=== PATIENT | female | born 1940 | race Caucasian/White ===

== ENCOUNTER 2021-02-23 08:51 | Outpatient (CLI) | payer MEDICARE, BC ==
[2021-02-23 11:14] LABS: Hemoglobin 14.8 g/dL (12.0-15.5); Mean Corpuscular HGB CONC 32.4 g/dL (32.0-36.0); Mean Corpuscular Hemoglobin 31.8 pg (27.0-33.0); Mean Corpuscular Volume 98.3 fl (81.6-98.3); Mean Platelet Volume 11.4 fl (7.4-10.4); Platelet Count 287 10x3/uL (150-450); Red Blood Cell (RBC) Count 4.65 10x6/uL (3.90-5.03); White Blood Cell (WBC) Count 7.4 10x3/uL (3.5-10.5)
[2021-02-23 11:15] LABS: Anion Gap 15 mmol/L (10-20); BUN (Urea Nitrogen) 15 mg/dL (9.8-20.1); Calc. Creatinine Clearance 0 mL/min (70-130); Calcium 9.4 mg/dL (7.8-10.44); Carbon Dioxide 24 mmol/L (23-31); Chloride 106 mmol/L (98-107); Glucose 94 mg/dL (83-110); Potassium 4.2 mmol/L (3.5-5.1); Sodium 141 mmol/L (136-145)
[2021-02-23 11:43] LABS: Bilirubin Neg (Negative); Blood, Urine 50 (Negative); Glucose, Urine (Dipstick) Normal (Negative); Ketone, Urine 5 mg/dL (Negative); Leukocyte 500 (Negative); Nitrite Negative (Negative); Protein, Urine (Dipstick) 30 mg/dl (Neg-Trace); Urobilinogen Normal mg/dL (Less than 2); pH, Urine 6.5 (5.0-9.0)
[2021-02-23 12:14] LABS: Clarity Slightly Cloudy (Clear)
[2021-02-23 12:20] LABS: RBC/HPF 0-3 HPF (0-3)
[2021-02-23 12:21] LABS: Bacteria/HPF 1+ HPF (None Seen); Squamous Epithelial 0-3 HPF (0-3)
== END 2021-02-23 08:52 | disposition home or self-care (01) ==
LOC: LABBT 08:51
PROVIDERS: ATTEND Urology
DX: Z01.818 Encounter for other preprocedural examination (principal); N32.81 Overactive bladder
CPT/HCPCS: 80048; 81001; 85027; 87086; 93005; 93010

== ENCOUNTER 2021-02-26 05:50 | Day surgery (SDC) | payer MEDICARE, BC ==
[2021-02-25 09:52] VITALS: BMI 25.7
[2021-02-26] MEDS ORDERED: Levofloxacin 500 mg/D5W 100 ml Premix Bag ONE (06:03)
[2021-02-26] MEDS ORDERED: Fentanyl 100 MCG/2 ML VIAL ONE (06:48)
[2021-02-26] MEDS ORDERED: Ondansetron PF 4 MG/2 ML Vial ONE ×2 (06:48→07:03)
[2021-02-26] MEDS ORDERED: PROPOFOL 20 ML ONE (06:48)
[2021-02-26] MEDS ORDERED: Sodium Chloride 0.9% 10 ML ONE (07:03)
[2021-02-26] MEDS ORDERED: Lidocaine 1% PF 5 ML VIAL ONE (07:03)
[2021-02-26] MEDS ORDERED: Phenazopyridine HCl 100 MG TAB ONE (08:06)
[2021-02-26] MEDS ORDERED: Oxybutynin 5 MG TAB ONE (08:06)
== END 2021-02-26 08:25 | disposition home or self-care (01) ==
LOC: SDC 05:50
PROVIDERS: ATTEND Urology
PROC: 3E0K8GC Introduction of Other Therapeutic Substance into Genitourinary Tract, Via Natural or Artificial Opening Endoscopic (ICD-10-PCS; principal; 2021-02-26)
DX: N32.81 Overactive bladder (principal)
CPT/HCPCS: 52287; J0585; J1956; J2405; J2704; J3010

== ENCOUNTER 2021-06-22 18:13 | Emergency (ER) | payer MEDICARE, BC ==
[2021-06-22] MEDS ORDERED: Acetaminophen 500 MG TAB ONE (19:09)
[2021-06-22] MEDS ORDERED: Albuterol Sulfate 1.25 MG/3 ML NEB ONE (19:50)
[2021-06-22] MEDS ORDERED: Albuterol 200 PUFF (6.7GM INHALER) ONE (19:51)
[2021-06-22 19:52] LABS: #Eosinphils 0.5 thou/uL (0.0-0.7); #Lymphocytes 0.6 thou/uL (1.20-3.40); #Monocytes 0.8 thou/uL (0.11-0.59); %Eosinophils 4.3 % (0.0-10.0); %Lymphocytes 5.4 % (21.0-51.0); %Neutrophils 83.4 % (42.0-75.0); Mean Corpuscular HGB CONC 34.1 g/dL (32.0-36.0); Mean Corpuscular Hemoglobin 33.5 pg (27.0-31.0); Mean Corpuscular Volume 98.2 fL (78.0-98.0); Mean Platelet Volume 9.2 fL (7.4-10.4); Platelet Count 230 thou/uL (130-400); RBC Distribution Width 11.7 % (11.5-14.5); Red Blood Cell (RBC) Count 3.89 mill/uL (4.20-5.40); White Blood Cell (WBC) Count 10.7 thou/uL (4.8-10.8)
[2021-06-22 20:07] LABS: ALT (SGPT) 135 U/L (8-55); AST (SGOT) 79 U/L (5-34); Albumin 3.5 g/dL (3.4-4.8); Alkaline Phosphatase 261 U/L (40-110); Anion Gap 14 mmol/L (10-20); BUN (Urea Nitrogen) 11 mg/dL (9.8-20.1); Bilirubin, Total 0.8 mg/dL (0.2-1.2); Calc. Creatinine Clearance 0 mL/min (70-130); Calcium 8.7 mg/dL (7.8-10.44); Carbon Dioxide 24 mmol/L (23-31); Chloride 103 mmol/L (98-107); Globulin 2.6 g/dL (2.4-3.5); Glucose 109 mg/dL (83-110); Potassium 3.5 mmol/L (3.5-5.1); Protein, Total 6.1 g/dL (5.8-8.1); Sodium 137 mmol/L (136-145)
[2021-06-22 20:09] LABS: SARS-CoV-2 NAA Rapid Test Not Detected (NotDetected)
[2021-06-22] MEDS ORDERED: cefTRIAXone\\ROCEPHIN 2 GM VIAL ONE (20:47)
[2021-06-22] MEDS ORDERED: Azithromycin 250 MG TAB ONE (20:47)
[2021-06-22 22:04] LABS: Bilirubin Negative (Negative); Blood, Urine Trace (Negative); Clarity Clear (Clear); Glucose, Urine (Dipstick) Normal (Negative); Ketone, Urine Negative (Negative); Leukocyte 75 Leu/uL (Negative); Nitrite Negative (Negative); Protein, Urine (Dipstick) 10 mg/dL (Neg-Trace); Specific Gravity, Urine 1.013 (1.002-1.036); Squamous Epithelial 0-3 HPF (0-3); Urobilinogen Normal mg/dL (Less than 2); pH, Urine 5.5 (5.0-9.0)
[2021-06-22 22:05] LABS: Bacteria/HPF 1+ HPF (None Seen)
== END 2021-06-22 21:45 | disposition home or self-care (01) ==
LOC: ERS 18:13
DX: J18.9 Pneumonia, unspecified organism (principal); Z20.822 Contact with and (suspected) exposure to COVID-19; Z87.891 Personal history of nicotine dependence
CPT/HCPCS: 71045; 80053; 83605; 84484; 85025; 87086; 93005; 96365; 99284; U0002; 36415; 81003; 81015; J0696

== ENCOUNTER 2021-06-26 18:55 | Emergency (ER) | payer MEDICARE, BC ==
[2021-06-26 20:21] LABS: #Eosinphils 1.7 thou/uL (0.0-0.7); #Lymphocytes 1.8 thou/uL (1.20-3.40); #Monocytes 0.7 thou/uL (0.11-0.59); %Eosinophils 16.4 % (0.0-10.0); %Lymphocytes 17.9 % (21.0-51.0); %Neutrophils 58.8 % (42.0-75.0); Hemoglobin 13.5 g/dL (12.0-16.0); Mean Corpuscular HGB CONC 33.7 g/dL (32.0-36.0); Mean Corpuscular Hemoglobin 33.7 pg (27.0-31.0); Mean Platelet Volume 8.7 fL (7.4-10.4); Platelet Count 291 thou/uL (130-400); RBC Distribution Width 11.6 % (11.5-14.5); White Blood Cell (WBC) Count 10.2 thou/uL (4.8-10.8)
[2021-06-26 20:35] LABS: Anion Gap 12 mmol/L (10-20); BUN (Urea Nitrogen) 11 mg/dL (9.8-20.1); Carbon Dioxide 23 mmol/L (23-31); Chloride 105 mmol/L (98-107); Potassium 3.9 mmol/L (3.5-5.1); Sodium 136 mmol/L (136-145)
[2021-06-26 20:36] LABS: ALT (SGPT) 64 U/L (8-55); AST (SGOT) 37 U/L (5-34); Albumin 3.6 g/dL (3.4-4.8); Alkaline Phosphatase 188 U/L (40-110); Bilirubin, Total 0.2 mg/dL (0.2-1.2); Calc. Creatinine Clearance 0 mL/min (70-130); Calcium 8.8 mg/dL (7.8-10.44); Globulin 2.9 g/dL (2.4-3.5); Glucose 120 mg/dL (83-110); Protein, Total 6.5 g/dL (5.8-8.1)
== END 2021-06-26 21:51 | disposition home or self-care (01) ==
LOC: ERS 18:55
DX: J18.9 Pneumonia, unspecified organism (principal); R11.2 Nausea with vomiting, unspecified; F17.210 Nicotine dependence, cigarettes, uncomplicated
CPT/HCPCS: 36415; 71045; 80053; 84484; 85025; 93005

== ENCOUNTER 2022-12-25 13:28 | Inpatient (IN) | payer MEDICARE, BC ==
[~2022-12-25 13:28] MED LIST: Iopamidol-370 76% 500 ML MDV (1 ML CHARGE) ONE
[2022-12-25 14:01] LABS: #Eosinphils 0.1 thou/uL (0.0-0.7); #Lymphocytes 1.5 thou/uL (1.20-3.40); #Monocytes 0.4 thou/uL (0.11-0.59); #Neutrophils 5.8 thou/uL (1.40-6.50); %Basophils 0.4 % (0.0-1.0); %Eosinophils 1.2 % (0.0-10.0); %Lymphocytes 19.5 % (21.0-51.0); %Monocytes 4.5 % (0.0-10.0); %Neutrophils 74.5 % (42.0-75.0); Hemoglobin 14.7 g/dL (12.0-16.0); Mean Corpuscular HGB CONC 34.9 g/dL (32.0-36.0); Mean Corpuscular Hemoglobin 34.6 pg (27.0-31.0); Mean Corpuscular Volume 99.2 fl (78.0-98.0); Mean Platelet Volume 9.1 fL (7.4-10.4); Platelet Count 246 10x3/uL (130-400); RBC Distribution Width 11.4 % (11.5-14.5); Red Blood Cell (RBC) Count 4.25 mill/uL (4.20-5.40); White Blood Cell (WBC) Count 7.7 10x3/uL (4.8-10.8)
[2022-12-25 14:11] LABS: PTT 29.2 sec (22.9-36.1); Prothrombin Time 12.8 sec (12.0-14.7)
[2022-12-25 14:14] LABS: INR-International Normal Ratio 0.9
[2022-12-25 14:24] LABS: ALT (SGPT) 8 U/L (8-55); AST (SGOT) 14 U/L (5-34); Albumin 4.5 g/dL (3.4-4.8); Alkaline Phosphatase 87 U/L (40-110); Anion Gap 16 mmol/L (10-20); BUN (Urea Nitrogen) 15 mg/dL (9.8-20.1); Bilirubin, Total 0.4 mg/dL (0.2-1.2); CK (CPK) 49 U/L (29-168); Calc. Creatinine Clearance 0 mL/min (70-130); Calcium 9.9 mg/dL (7.8-10.44); Carbon Dioxide 21 mmol/L (23-31); Chloride 107 mmol/L (98-107); Estimated GFR 66; Globulin 3.2 g/dL (2.4-3.5); Glucose 135 mg/dL (83-110); Protein, Total 7.7 g/dL (5.8-8.1); Sodium 140 mmol/L (136-145)
[2022-12-25] MEDS ORDERED: Tenecteplase 50 MG ONE (14:37)
[2022-12-25 15:07] LABS: Bacteria/HPF None Seen HPF (None Seen); Bilirubin Negative (Negative); Blood, Urine Trace (Negative); Clarity Clear (Clear); Glucose, Urine (Dipstick) Normal (Negative); Ketone, Urine Negative (Negative); Leukocyte 250 Leu/uL (Negative); Nitrite Negative (Negative); Protein, Urine (Dipstick) Negative (Neg-Trace); Specific Gravity, Urine 1.047 (1.002-1.036); Squamous Epithelial 0-3 HPF (0-3); Urobilinogen Normal mg/dL (Less than 2)
[2022-12-25 15:13] LABS: Amphetamine Not Detected (NotDetected); Barbiturates Screen Not Detected (NotDetected); Benzodiazepine Screen Not Detected (NotDetected); Cocaine Metabolite Screen Not Detected (NotDetected); Methadone Not Detected (NotDetected); Methamphetamine Not Detected (NotDetected); Opiate Screen Not Detected (NotDetected); Oxycodone Screen Not Detected (NotDetected); Phencyclidine (PCP) Not Detected (NotDetected); THC/Cannabinoid Screen Not Detected (NotDetected); Tricyclic Screen Not Detected (NotDetected)
[2022-12-25] MEDS ORDERED: Communication Order-Pharmacy FS SCH (15:20)
[2022-12-25] MEDS ORDERED: hydrALAZINE 20 MG/ML VIAL SLOW IVP PRN (15:20)
[2022-12-25] MEDS ORDERED: Acetaminophen 325 MG TAB PO PRN (15:20)
[2022-12-25] MEDS: niCARdipine 25 MG in Sodium Chloride 0.9% 250 ML 250 ML IVPB PRN ×2 (17:15→22:11)
[2022-12-25] MEDS: Labetalol HCl 100 MG/20 ML VIAL SLOW IVP PRN ×2 (17:21→21:27)
[2022-12-25] MEDS ORDERED: Lorazepam 2 MG/ML VIAL ONE (17:30)
[2022-12-25 19:43] VITALS: BMI 25.6
[2022-12-25 21:13] LABS: #Lymphocytes 1.2 thou/uL (1.20-3.40); #Monocytes 0.6 thou/uL (0.11-0.59); #Neutrophils 14.3 thou/uL (1.40-6.50); %Basophils 0.1 % (0.0-1.0); %Eosinophils 0.3 % (0.0-10.0); %Lymphocytes 7.2 % (21.0-51.0); %Monocytes 3.6 % (0.0-10.0); %Neutrophils 88.9 % (42.0-75.0); Hemoglobin 13.3 g/dL (12.0-16.0); Mean Corpuscular HGB CONC 33.2 g/dL (32.0-36.0); Mean Corpuscular Hemoglobin 32.9 pg (27.0-31.0); Mean Corpuscular Volume 99.2 fl (78.0-98.0); Mean Platelet Volume 8.7 fL (7.4-10.4); Platelet Count 240 10x3/uL (130-400); RBC Distribution Width 11.3 % (11.5-14.5); Red Blood Cell (RBC) Count 4.04 mill/uL (4.20-5.40); White Blood Cell (WBC) Count 16.1 10x3/uL (4.8-10.8)
[2022-12-25] MEDS: Atorvastatin Calcium 40 MG TAB PO SCH (21:44)
[2022-12-25] MEDS ORDERED: Lorazepam 2 MG/ML VIAL SLOW IVP PRN (22:18)
[2022-12-25 23:11] LABS: PTT 25.7 sec (22.9-36.1); Prothrombin Time 13.1 sec (12.0-14.7)
[2022-12-26] MEDS ORDERED: niCARdipine 25 MG in Sodium Chloride 0.9% 250 ML 250 ML IVPB PRN (01:10)
[2022-12-26] MEDS ORDERED: hydrALAZINE 20 MG/ML VIAL SLOW IVP PRN (01:11)
[2022-12-26] MEDS: Labetalol HCl 100 MG/20 ML VIAL SLOW IVP PRN ×2 (01:19→04:45)
[2022-12-26] MEDS ORDERED: Scopolamine 1.5 mg/72 hour Patch TD SCH (02:00)
[2022-12-26] MEDS ORDERED: Ondansetron PF 4 MG/2 ML Vial IVP PRN (04:34)
[2022-12-26] MEDS: niCARdipine 50 MG in Sodium Chloride 0.9% 250 ML 230 ML IV SCH ×5 (07:40→22:57)
[2022-12-26] MEDS: niCARdipine 25 MG in Sodium Chloride 0.9% 250 ML 250 ML IVPB PRN (12:59)
[2022-12-26] MEDS: Atorvastatin Calcium 40 MG TAB PO SCH (21:08)
[2022-12-27] MEDS: niCARdipine 50 MG in Sodium Chloride 0.9% 250 ML 230 ML IV SCH ×3 (02:20→06:21)
[2022-12-27] MEDS ORDERED: Lorazepam 2 MG/ML VIAL SLOW IVP PRN (05:01)
[2022-12-27] MEDS: Labetalol HCl 100 MG/20 ML VIAL SLOW IVP PRN (06:48)
[2022-12-27] MEDS: Morphine 2 MG/ML VIAL SLOW IVP PRN ×2 (09:08→11:15)
[2022-12-27 11:04] VITALS: BP 132/71; TEMP 100.3
== END 2022-12-27 12:32 | disposition home or self-care (01) | DRG 61 ==
LOC: ERS 13:28 → CCU 15:44 → T4-A 12-27 08:44
PROVIDERS: ADMIT Internal Medicine; ATTEND Internal Medicine
DX: I63.9 Cerebral infarction, unspecified (principal); I60.8 Other nontraumatic subarachnoid hemorrhage; I61.8 Other nontraumatic intracerebral hemorrhage; F05 Delirium due to known physiological condition; R91.1 Solitary pulmonary nodule; R33.9 Retention of urine, unspecified; Z51.5 Encounter for palliative care; Z66 Do not resuscitate; R47.1 Dysarthria and anarthria; T45.615A Adverse effect of thrombolytic drugs, initial encounter; R29.701 NIHSS score 1; Z90.710 Acquired absence of both cervix and uterus; Z87.891 Personal history of nicotine dependence; Z79.899 Other long term (current) drug therapy
CPT/HCPCS: 36416; 70450; 70496; 70498; 80053; 80306; 81003; 81015; 82550; 84484; 85025; 85610; 85730; 86850; 86900; 86901; 93005; 93306; J0360; J2060; J2272; J2405; J3101; J7050; Q9967

== ENCOUNTER 2022-12-27 12:45 | Inpatient (IN) | payer OTHER ==
[2022-12-27] MEDS ORDERED: Bisacodyl 10 MG SUPP PR PRN (13:05)
[2022-12-27] MEDS ORDERED: Glycopyrrolate 0.4 MG/ 2 ML VIAL SLOW IVP PRN (13:07)
[2022-12-27] MEDS: Lorazepam 2 MG/ML VIAL SLOW IVP PRN (13:07)
[2022-12-27] MEDS ORDERED: Scopolamine 1.5 mg/72 hour Patch TOP PRN (13:15)
[2022-12-27] MEDS ORDERED: Haloperidol Lactate 5 MG/ML VIAL SLOW IVP PRN (13:15)
[2022-12-27] MEDS ORDERED: Promethazine HCl 25 MG SUPP PR PRN (13:15)
[2022-12-27] MEDS ORDERED: Ondansetron PF 4 MG/2 ML Vial IVP PRN (13:15)
[2022-12-27] MEDS: Morphine 2 MG/ML VIAL SLOW IVP PRN ×4 (14:46→21:47)
[2022-12-27] MEDS: GLYCOPYRROLATE/PF 0.2 MG/ML VIAL SLOW IVP PRN (16:21)
[2022-12-28] MEDS: Morphine 2 MG/ML VIAL SLOW IVP PRN ×2 (01:10→08:28)
[2022-12-28] MEDS: Lorazepam 2 MG/ML VIAL SLOW IVP PRN (13:08)
[2022-12-28] MEDS: GLYCOPYRROLATE/PF 0.2 MG/ML VIAL SLOW IVP PRN (13:08)
[2022-12-28] MEDS ORDERED: Scopolamine 1.5 mg/72 hour Patch TOP PRN (14:39)
[2022-12-29] MEDS: Lorazepam 2 MG/ML VIAL SLOW IVP PRN (03:26)
[2022-12-29] MEDS: Morphine 2 MG/ML VIAL SLOW IVP PRN ×4 (03:26→18:39)
[2022-12-29] MEDS ORDERED: Bisacodyl 10 MG SUPP PR PRN (13:33)
[2022-12-29] MEDS ORDERED: Bisacodyl 10 MG SUPP PR SCH (13:45)
[2022-12-30] MEDS: Acetaminophen 650 MG Suppository PR PRN ×2 (06:15→21:34)
[2022-12-30] MEDS: Morphine 2 MG/ML VIAL SLOW IVP PRN ×4 (07:48→11:17)
[2022-12-30] MEDS: GLYCOPYRROLATE/PF 0.2 MG/ML VIAL SLOW IVP PRN (07:50)
[2022-12-30] MEDS: Lorazepam 2 MG/ML VIAL SLOW IVP PRN (07:50)
[2022-12-30] MEDS: Morphine 4 MG/ML VIAL SLOW IVP PRN ×5 (12:18→21:24)
[2022-12-31] MEDS: Morphine 4 MG/ML VIAL SLOW IVP PRN ×3 (01:49→11:13)
[2022-12-31] MEDS: Acetaminophen 650 MG Suppository PR PRN ×2 (09:22→18:08)
[2023-01-01] MEDS: Morphine 4 MG/ML VIAL SLOW IVP PRN ×7 (01:34→23:28)
[2023-01-01] MEDS: Acetaminophen 650 MG Suppository PR PRN ×2 (08:44→13:38)
[2023-01-01] MEDS: Lorazepam 2 MG/ML VIAL SLOW IVP PRN ×3 (08:45→23:28)
[2023-01-01 20:06] VITALS: BP 83/50; TEMP 100.5
[2023-01-02] MEDS: Morphine 4 MG/ML VIAL SLOW IVP PRN (05:18)
[2023-01-02] MEDS: Lorazepam 2 MG/ML VIAL SLOW IVP PRN (05:19)
== END 2023-01-02 06:08 | disposition expired | DRG 951 ==
LOC: T4-A 12:45
PROVIDERS: ADMIT Family Medicine; ATTEND Family Medicine
DX: Z51.5 Encounter for palliative care (principal); I62.9 Nontraumatic intracranial hemorrhage, unspecified; Z66 Do not resuscitate
CPT/HCPCS: J2060; J2270; J2272; J3490